=== PATIENT | female | born 1960 | race Caucasian/White ===

== ENCOUNTER → 2018-07-14 16:44 | Outpatient (CLI) | payer OTHER | END | disposition home or self-care (01) | LOC: D.MAMMO 13:00 | DX: Z12.31 Encounter for screening mammogram for malignant neoplasm of breast (principal) ==

== ENCOUNTER 2018-09-01 08:00 | Outpatient (CLI) | payer OTHER | END 2018-09-01 09:00 | disposition home or self-care (01) | LOC: D.MAMMO 08:00 | DX: R92.8 Other abnormal and inconclusive findings on diagnostic imaging of breast (principal) ==

== ENCOUNTER → 2019-09-04 13:00 | Outpatient (CLI) | payer OTHER | END | disposition home or self-care (01) | LOC: D.MAMMO 08:00 | PROVIDERS: ATTEND Family Medicine | DX: Z12.31 Encounter for screening mammogram for malignant neoplasm of breast (principal) ==

== ENCOUNTER 2020-05-20 11:31 | Outpatient (CLI) | payer OTHER ==
[~2020-05-20] VITALS: Ht 170.2 cm; Wt 56.8 kg
[2020-05-20 12:01] VITALS: Ht 170.2 cm; Wt 56.8 kg
== END 2020-05-20 12:25 | disposition home or self-care (01) ==
LOC: D.OPS 11:31
PROVIDERS: ATTEND Nurse Practitioner Family
DX: M80.80XA Other osteoporosis with current pathological fracture, unspecified site, initial encounter for fracture (principal)